=== PATIENT | male | born 1980 | race Caucasian/White ===

== ENCOUNTER 2024-06-01 09:50 | Outpatient (CLI) | payer BC, SELFPAY ==
[2024-06-01 11:05] LABS: Abs Immature Grans 0.01 10^3/uL (0.0-0.06); Absolute Basophil Count 0.03 10^3/uL (0.0-0.2); Absolute Lymphocyte Count 2.21 10^3/uL (1.2-3.4); Absolute Monocyte Count 0.54 10^3/uL (0.1-0.8); Absolute Neutrophil Count 1.58 10^3/uL (1.2-6.7); Basophils % 0.6 %; Eosinophils % 12.1 %; HCT 44.3 % (40.0-50.0); HGB 14.7 g/dL (13.5-17.5); Immature Grans % 0.2 %; Lymphocytes % 44.5 %; MCH 30.6 pg (27.0-33.0); MCHC 33.2 % (32.0-36.0); MCV 92 fL (80-95); MPV 9.9 fL (8.0-11.0); Monocytes % 10.9 %; Neutrophils % 31.7 %; Platelet Count 270 10^3/uL (130-400); RBC 4.81 10^6/uL (4.36-5.78); RDW 12.5 % (11.8-14.1); RDW-SD 42.8 fL; WBC 4.97 10^3/uL (4.4-10.8)
[2024-06-01 11:21] LABS: ALT 38 U/L (16-63); AST 36 U/L (15-37); Albumin 3.9 g/dL (3.4-5.0); Alkaline Phosphatase 76 U/L (46-116); Anion Gap 5.7 mmol/L (3-11); BUN 11 mg/dL (7-18); Bilirubin, Total 0.96 mg/dL (0.2-1.0); CO2 29.3 mmol/L (21.0-32.0); Calculated LDL 98 mg/dL (<100); Chloride 108 mmol/L (98-107); Cholesterol 170 mg/dL (<200); Estimated GFR 96.37 (mL/min/1.73m2); Glucose 93 mg/dL (74-106); HDL Cholesterol 43 mg/dL (40-60); Potassium 4.5 mmol/L (3.5-5.1); Sodium 143 mmol/L (136-145); Total Protein 7.4 g/dL (6.4-8.2); Triglyceride 148 mg/dL (<150)
== END 2024-06-01 09:51 | disposition home or self-care (01) ==
PROVIDERS: Visit Provider Physician Assistant
DX: Z79.899 Other long term (current) drug therapy (principal)
CPT/HCPCS: 36415; 80053; 80061; 85025

== ENCOUNTER 2025-01-04 09:13 | Outpatient (CLI) | payer BC, SELFPAY ==
[2025-01-04 09:29] LABS: Abs Immature Grans 0.02 10^3/uL (0.0-0.06); Absolute Basophil Count 0.02 10^3/uL (0.0-0.2); Absolute Eosinophil Count 0.38 10^3/uL (0.0-0.7); Absolute Lymphocyte Count 2.23 10^3/uL (1.2-3.4); Absolute Monocyte Count 0.51 10^3/uL (0.1-0.8); Absolute Neutrophil Count 1.53 10^3/uL (1.2-6.7); Basophils % 0.4 %; Eosinophils % 8.1 %; HCT 43.8 % (40.0-50.0); Immature Grans % 0.4 %; Lymphocytes % 47.5 %; MCH 30.9 pg (27.0-33.0); MCHC 34.2 % (32.0-36.0); MCV 90 fL (80-95); MPV 9.3 fL (8.0-11.0); Monocytes % 10.9 %; Neutrophils % 32.7 %; Platelet Count 257 10^3/uL (130-400); RBC 4.85 10^6/uL (4.36-5.78); RDW 12.5 % (11.8-14.1); RDW-SD 41.3 fL; WBC 4.69 10^3/uL (4.4-10.8)
[2025-01-04 10:12] LABS: ALT 49 U/L (16-63); AST 40 U/L (15-37); Alkaline Phosphatase 71 U/L (46-116); Anion Gap 2.3 mmol/L (3-11); BUN 15 mg/dL (7-18); Bilirubin, Total 0.9 mg/dL (0.2-1.0); CO2 31.7 mmol/L (21.0-32.0); CREATININE 1.2 mg/dL (0.70-1.30); Calcium 9.1 mg/dL (8.5-10.1); Calculated LDL 109 mg/dL (<100); Chloride 104 mmol/L (98-107); Cholesterol 194 mg/dL (<200); Estimated GFR 77.43 (mL/min/1.73m2); Glucose 101 mg/dL (74-106); HDL Cholesterol 42 mg/dL (>or=40); Potassium 3.9 mmol/L (3.5-5.1); Sodium 138 mmol/L (136-145); Total Protein 7.6 g/dL (6.4-8.2); Triglyceride 215 mg/dL (<150)
[2025-01-05 09:06] LABS: HBs Antibody, Quant <3.1 mIU/mL (See Note); Hepatitis B Surface Ab Negative (See Note)
[2025-01-05 09:10] LABS: Hepatitis B Surface Ag Negative (Negative)
[2025-01-05 10:09] LABS: Hep B Core Antibody Negative (Negative)
[2025-01-05 10:13] LABS: Hepatitis C Ab w Rflx HCV PCR Negative (Negative)
[2025-01-08 15:22] LABS: TB Interpretation Negative (Negative)
== END 2025-01-04 09:14 | disposition home or self-care (01) ==
LOC: LBO 09:13
PROVIDERS: Visit Provider Dermatology
DX: Z79.899 Other long term (current) drug therapy (principal)
CPT/HCPCS: 36415; 80053; 80061; 86704; 86706; 86803; 87340; 85025; 86480